=== PATIENT | female | born 1990 | race Caucasian/White ===

== ENCOUNTER 2019-11-13 14:22 | Inpatient (IN) | payer OTHER ==
[~2019-11-13] VITALS: Ht 172.7 cm; Wt 103.4 kg
--- NOTE | 2019-11-13 14:40 | NUR ---
PATIENT BROUGHT BACK FROM TRIAGE WITH CHIEF COMPLAINT OF LEFT LOWER LEG/ANKLE PAIN. "I WAS SNOWBOARDING AND I WAS GETTING OFF THE CHAIR LIFT AND MY FOOT GOT CAUGHT BEHIND ME AND I THOUGH I HEARD A SNAP OR POP OR SOMETHING AND THAT WAS IT. IT'S SUPER TINGLY". C/O R ANKLE/BRIGHT PAIN. NO OTHER COMPLAINTS AT THIS TIME. CMS INTACT. Addendum: 11/13/19 at 1755 by [email or web address] PATIENT BROUGHT BACK FROM TRIAGE WITH CHIEF COMPLAINT OF RIGHT LOWER LEG/ANKLE PAIN. "I WAS SNOWBOARDING AND I WAS GETTING OFF THE CHAIR LIFT AND MY FOOT GOT CAUGHT BEHIND ME AND I THOUGH I HEARD A SNAP OR POP OR SOMETHING AND THAT WAS IT. IT'S SUPER TINGLY". C/O R ANKLE/BRIGHT PAIN. NO OTHER COMPLAINTS AT THIS TIME. CMS INTACT.
[2019-11-13] MEDS ORDERED: HYDROmorphone 1 MG/ML, 1ML INJ ONE ×2 (14:58→16:11)
[2019-11-13] MEDS ORDERED: SODIUM CHLORIDE FLUSH 10ML SYR IVF ONE ×2 (15:00→16:00)
[2019-11-13] MEDS: HYDROmorphone 1 MG/ML, 1ML INJ IVPush PRN ×2 (15:12→16:13)
[2019-11-13] MEDS ORDERED: SODIUM CHLORIDE 0.9% 1,000 ML IV ONE (15:58)
--- NOTE | 2019-11-13 16:15 | NUR ---
LONG SPLINT APPLIED BY SOCIOLOGY ADJUNCT INSTRUCTOR. [facility] INTACT
[2019-11-13 16:30] LABS: BASOPHILS # (AUTO) 0.03 x10^3/uL (0-0.1); BASOPHILS % (AUTO) 0 % (0-1); EOSINOPHILS # (AUTO) 0.04 x10^3/uL (0-0.4); EOSINOPHILS % (AUTO) 0 % (1-7); LYMPHOCYTES # (AUTO) 1.78 x10^3/uL (1-3.4); LYMPHOCYTES % (AUTO) 10 % (22-44); MD NO; MEAN CORPUSCULAR HEMOGLOBIN 31.8 pg (27.0-34.8); MEAN CORPUSCULAR HGB CONC 33.3 g/dL (32.4-35.8); MEAN CORPUSCULAR VOLUME 95.8 fL (80-100); MONOCYTES % (AUTO) 5 % (2-9); NEUTROPHILS # (AUTO) 14.38 x10^3/uL (1.8-6.8); NEUTROPHILS % (AUTO) 85 % (42-75); PLATELET COUNT 326 x10^3/uL (130-400); RED BLOOD COUNT 4.64 x10^6/uL (3.82-5.3); RED CELL DISTRIBUTION WIDTH 13.4 % (9.6-15.2)
[2019-11-13 16:44] LABS: ALBUMIN 3.8 g/dL (3.4-5.0); ANION GAP 7 mmol/L (5-15); CALCIUM 8.4 mg/dL (8.5-10.1); CHLORIDE 107 mmol/L (98-107); CREATININE 0.66 mg/dL (0.55-1.02)
[2019-11-13] MEDS ORDERED: morphine SULFATE 10 MG/ML, 1ML ONE (19:38)
[2019-11-13] MEDS ORDERED: morphine SULFATE 10 MG/ML, 1ML IVPush ONE (20:00)
--- NOTE | 2019-11-13 21:07 | NUR ---
DR. GUERRA AT BEDSIDE, PT NOT GOING TO SURGERY TONIGHT. PT SCHEDULE FOR SURG 7AM. PT TO BE ADMITTED TO SURGICAL FLOOR.
[2019-11-13 21:49] VITALS: BP 132/88
[2019-11-13] MEDS ORDERED: ONDANSETRON ODT 4 MG PO PRN (22:30)
[2019-11-13] MEDS ORDERED: D5%-LACTATED RINGERS 1,000 ML IV SCH (22:30)
[2019-11-13] MEDS: ONDANSETRON 2MG/ML, 2ML IVPush PRN (22:41)
[2019-11-13] MEDS: HYDROmorphone 2 MG/ML, 1ML IV PRN (22:41)
[2019-11-14] MEDS: HYDROmorphone 2 MG/ML, 1ML IV PRN ×2 (02:10→05:33)
[2019-11-14 04:21] VITALS: BP 101/64
[2019-11-14] MEDS ORDERED: MIDAZOLAM 1 MG/ML, 2ML ONE (07:29)
[2019-11-14] MEDS ORDERED: FENTANYL PF 250 MCG/5ML ONE (07:29)
[2019-11-14] MEDS ORDERED: LIDOCAINE GEL 2%, 5ML ONE (07:31)
[2019-11-14] MEDS ORDERED: PROMETHAZINE 25 MG/ML, 1ML IV PRN (08:00)
[2019-11-14] MEDS ORDERED: OXYcodone 5 MG/5 ML ORAL.SOL UDC PO PRN (08:00)
[2019-11-14] MEDS ORDERED: HYDROmorphone 2 MG/ML, 1ML IVPush PRN ×2 (08:00→13:30)
[2019-11-14] MEDS ORDERED: ALBUTEROL/IPRATROPIUM 2.5MG/0.5MG, 3 ML NPPB PRN (08:00)
[2019-11-14] MEDS ORDERED: MIDAZOLAM 1 MG/ML, 2ML IV PRN (08:00)
[2019-11-14] MEDS ORDERED: METOPROLOL 1 MG/ML, 5ML IV PRN (08:00)
[2019-11-14] MEDS ORDERED: SCOPOLAMINE PATCH, 1.5MG PATCH.TD72 TD PRN (08:00)
[2019-11-14] MEDS ORDERED: ACETAMINOPHEN 325 MG TABLET PO PRN ×2 (08:00→13:30)
[2019-11-14] MEDS ORDERED: hydrALAzine 20 MG/ML, 1ML IV PRN (08:00)
[2019-11-14] MEDS ORDERED: METOCLOPRAMIDE 5 MG/ML, 2ML ONE (08:10)
[2019-11-14] MEDS ORDERED: ACETAMINOPHEN 650 MG/20.3 ML UDC ONE (08:28)
[2019-11-14] MEDS ORDERED: OXYcodone 5 MG/5 ML ORAL.SOL UDC ONE (08:29)
[2019-11-14] MEDS ORDERED: FENTANYL PF 100 MCG/2ML ONE ×2 (08:29→10:52)
[2019-11-14] MEDS ORDERED: ONDANSETRON 2MG/ML, 2ML ONE (09:23)
[2019-11-14] MEDS ORDERED: CEFAZOLIN 1,000 MG ONE (09:23)
[2019-11-14] MEDS ORDERED: DEXAMETHASONE 4 MG/ML, 1ML ONE (09:23)
[2019-11-14] MEDS ORDERED: PROPOFOL 10 MG/ML, 20ML ONE (09:23)
[2019-11-14] MEDS ORDERED: MEPERIDINE/PF 25MG/ML,1ML ONE (09:43)
[2019-11-14] MEDS: MEPERIDINE/PF 25MG/ML,1ML IVPush PRN ×2 (09:45→09:50)
[2019-11-14] MEDS ORDERED: SCOPOLAMINE PATCH, 1.5MG PATCH.TD72 TD ONE (09:54)
[2019-11-14] MEDS: FENTANYL PF 100 MCG/2ML IV PRN ×3 (10:05→11:00)
[2019-11-14] MEDS ORDERED: DIAZEPAM 5 MG TABLET PO PRN (13:30)
[2019-11-14] MEDS ORDERED: MAGNESIUM HYDROXIDE 8%, 30ML UDC PO PRN (13:30)
[2019-11-14] MEDS ORDERED: ONDANSETRON 2MG/ML, 2ML IV PRN (13:30)
[2019-11-14] MEDS ORDERED: HYDROcodone/APAP 10/325 MG TABLET PO PRN (13:30)
[2019-11-14] MEDS ORDERED: D5%-LACTATED RINGERS 1,000 ML IV SCH (13:30)
[2019-11-14] MEDS ORDERED: BISACODYL 10 MG SUPP PR PRN (13:30)
[2019-11-14] MEDS ORDERED: ALUMINUM/MAG/SIMETHICONE 30 ML UDC PO PRN (13:30)
[2019-11-14] MEDS ORDERED: DIPHENHYDRAMINE 25 MG CAPSULE PO PRN (13:30)
[2019-11-14] MEDS ORDERED: SENNA/DOCUSATE TABLET PO PRN (13:30)
[2019-11-14] MEDS: D5%-LACTATED RINGERS 1,000 ML IV SCH ×2 (13:35→21:35)
[2019-11-14 14:00] VITALS: BP 129/87
[2019-11-14] MEDS: ONDANSETRON 2MG/ML, 2ML IVPush PRN (14:28)
[2019-11-14] MEDS: OXYcodone 5 MG/5 ML ORAL.SOL UDC PO PRN ×3 (14:28→22:30)
[2019-11-14] MEDS: CEFAZOLIN PMX 2GM/50ML 50 ML IVPB SCH ×2 (15:40→23:57)
[2019-11-14 19:24] VITALS: BP 126/86
[2019-11-14] MEDS: SODIUM CHLORIDE FLUSH 10ML SYR IVF SCH (21:00)
[2019-11-14] MEDS: DOCUSATE 100 MG CAPSULE PO SCH (21:08)
[2019-11-15 00:49] VITALS: BP 105/66
[2019-11-15] MEDS: OXYcodone 5 MG/5 ML ORAL.SOL UDC PO PRN ×5 (02:57→19:42)
[2019-11-15] MEDS: D5%-LACTATED RINGERS 1,000 ML IV SCH ×2 (05:35→13:35)
[2019-11-15 06:50] VITALS: BP 109/61
[2019-11-15] MEDS: ASPIRIN 81 MG TABLET EC PO SCH ×2 (08:19→19:42)
[2019-11-15] MEDS: SODIUM CHLORIDE FLUSH 10ML SYR IVF SCH (08:19)
[2019-11-15] MEDS: DOCUSATE 100 MG CAPSULE PO SCH ×2 (08:19→19:41)
[2019-11-15] MEDS ORDERED: MULTIVITAMINS/MINERALS TABLET PO SCH (09:00)
[2019-11-15 13:00] VITALS: BP 110/64
[2019-11-15] MEDS ORDERED: OXYC-307 PO (18:07)
[2019-11-15] MEDS ORDERED: OXYC-302 PO (18:07)
[2019-11-15] MEDS ORDERED: ASPI81TA45 PO (18:08)
== END 2019-11-15 20:50 | disposition home or self-care (01) | DRG 494 ==
LOC: ED 15:33 → EDIP 17:48 → 4NE 21:20
PROVIDERS: ADMIT Orthopaedic Surgery; ATTEND Orthopaedic Surgery
PROC: 0QHG36Z Insertion of Intramedullary Internal Fixation Device into Right Tibia, Percutaneous Approach (ICD-10-PCS; 2019-11-14)
PROC: 0QH Lower Bones, Insertion (ICD-10-PCS; principal; 2019-11-14 07:30)
DX: S82.241A Displaced spiral fracture of shaft of right tibia, initial encounter for closed fracture (principal); F17.210 Nicotine dependence, cigarettes, uncomplicated; E66.9 Obesity, unspecified; S82.431A Displaced oblique fracture of shaft of right fibula, initial encounter for closed fracture; W18.39XA Other fall on same level, initial encounter; Y93.89 Activity, other specified; Y92.89 Other specified places as the place of occurrence of the external cause; Y99.8 Other external cause status; Z68.34 Body mass index [BMI] 34.0-34.9, adult
CPT/HCPCS: 36415; 73590; 76000; 99285; J7121; 80048; 82040; 84703; 85014; 85018; 85025; C1713; G0378; J0690; J1100; J1170; J2250; J2405; J2704; J3010; J2175; J2270; J2765; J7030